=== PATIENT | female | born 1955 | race Caucasian/White ===

== ENCOUNTER → 2020-11-26 | Outpatient (CLI) | payer OTHER ==
[~2020-11-26] VITALS: Ht 160 cm; Wt 76.2 kg
[~2020-11-26] MED LIST: ASA81BEC PO; CLIMARA1 EAC3 TRANSDERM; OMEPRAZOLE40 MG PO; RYTHMOL SR425 MG PO
[2020-11-26 07:38] VITALS: BP 133/67
[2020-11-26 08:09] LABS: ABSOLUTE NEUTROPHILS 1.8 thou/uL (1.4-8.2); BASOPHILS 1.2 % (0.0-2.0); EOSINOPHILS 6.3 % (0.0-3.0); HEMATOCRIT 45.2 % (37.0-47.0); HEMOGLOBIN 14.9 gm/dL (12.0-15.0); LYMPHOCYTES 25.3 % (24.0-44.0); MCH 29.7 pg (26.0-34.0); MCHC 32.9 g/dL (28.0-37.0); MCV 90.3 fL (80.0-100.0); MONOCYTES 18.8 % (1.0-8.0); PLATELET COUNT 210 thou/uL (150-400); POLYS 48.4 % (36.0-66.0); RBC 5.01 mil/uL (4.20-5.00); RDW 13.6 % (10.5-14.5); WBC 3.8 thou/uL (4.0-11.0)
[2020-11-26 08:10] LABS: APTT 27.8 Seconds (24.5-32.8); INR 0.93; PROTIME 10.2 Seconds (10.5-12.1)
[2020-11-26 08:36] LABS: CALCIUM 9.4 mg/dL (8.5-10.1); CREATININE 1.2 mg/dL (0.6-1.0); POTASSIUM 3.9 mmol/L (3.5-5.1)
[2020-11-26 08:41] LABS: ALBUMIN 4.1 g/dL (3.4-5.0); TOTAL BILIRUBIN 0.2 mg/dL (0.2-1.0); TOTAL PROTEIN 7.7 g/dL (6.4-8.2)
--- NOTE | 2020-11-26 10:58 | NUR ---
RETURNED TO CV HOLDING FROM PACU. REPORT AT BEDSIDE. RT AND LT GROIN DRESSINGS C/D/I, SOFT. PT AWAKE AND ALERT. VSS.
--- NOTE | 2020-11-29 08:33 | P ---
[facility] [place] [address] PROCEDURE REPORT Name: ERICKA RANKIN Room #: REG AXEL RamosBrianne#: [id number] Admission: 11/26/20 Attend Phys: Andre Mohan MD Discharge: Date of : 59 Report #: [id number] THIS REPORT FOR: cc: FAM - Family physician unknown NO FAMILY PHYSICIAN or PCP Andre Mohan MD ~ DATE OF SERVICE: 11/26/2020 SVT ABLATION PREOPERATIVE DIAGNOSIS: Supraventricular tachycardia. 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 HISTORY: The patient is a 65-year-old female with a longstanding history of SVT, has been on propafenone therapy and is having breakthrough. She is here for EP study and possible ablation. PROCEDURES PERFORMED: 1. SVT ablation, CPT code 61191. 2. EP with left atrial pacing recording, CPT code 81757. 3. Program stimulation pacing after IV drug infusion, CPT code 87272. 4. 3D mapping, CPT code 10998. ANESTHESIA: The patient underwent MAC anesthesia with no anesthesia-related complications. DESCRIPTION OF PROCEDURE: The patient had undergone informed consent. She was then brought to the EP laboratory in a fasting and a sedated state. She was prepped and draped in a standard fashion. I then obtained access to the right femoral vein x 3 and the left femoral vein x 1. I then placed sheaths up using the modified Seldinger technique. Under fluoroscopy, 3 quadripolar catheters were placed at the HRA, His and RV positions and a decapolar catheter was placed into the coronary sinus for left atrial pacing and recording. A basic EP study was performed. At baseline, she was in sinus rhythm, sinus cycle length of 900 milliseconds, GA interval 166 milliseconds, QRS duration 97 milliseconds, QT interval 435 milliseconds, AH interval 85 milliseconds, HV interval 36 milliseconds. With catheter positioning, she did develop a right bundle branch block. Next, a basic EP study was performed and AV block was noted at 440 milliseconds and the fast pathway ERP was noted at 430 milliseconds at a 500-millisecond basic drive cycle length. Atrial ERP was noted at 340 milliseconds at a 500-millisecond basic drive cycle length. Next, a ventricular pacing was performed and VA block was noted at [address] [facility] [address] [place] [address] PROCEDURE REPORT Name: ERICKA RANKIN Room #: REG [facility]#: [id number] Admission: 11/26/20 Attend Phys: Andre Mohan MD Discharge: Date of : 59 Report #: [id number] milliseconds. Single ventricular extrastimuli were delivered and there was evidence of both midline and decremental VA conduction. Isoproterenol infusion was initiated at 2 mcg per minute. Atrial burst pacing was performed. Atrial ERP was noted at 270 milliseconds at a 450-millisecond basic drive cycle length. With atrial burst pacing, the patient went into SVT, septal VA x 60 and a tachycardia cycle length of 310 milliseconds. I was able to demonstrate an entrainment with a VAHV response multiple times. In fact, when she was in SVT, it was quite hard to terminate it, I would have to pace down to 250 milliseconds from the feed to terminate it. I was able to re-induce it again as we turned off isoproterenol and waited for this to wash out. Therefore, a diagnosis of typical AV kalli reentrant tachycardia was made. 3D MAPPING AND ABLATION: Next, an SR0 and a 4 mm ablation catheter were placed into the right atrium and a 3D geometry of the right atrium was created with specific emphasis of the His bundle region and the slow pathway region. Next, ablation was performed at 50 glover and 55 degrees. The first 5 ablation lesions resulted in no junctionals. I then went slightly higher and pressed against the septum slightly harder. My last 3 dobbs had great junctionals, 2 of the lesions had approximately 50 seconds of junctionals and the last lesion had 30 seconds of junctionals. There was never any compromise to AV kalli conduction. As such, a repeat EP study was performed. Post-ablation EP study was performed on isoproterenol. AV block was noted at 270 milliseconds. Atrial ERP was noted at 210 milliseconds at a 450-millisecond basic drive cycle length. Ventricular pacing was performed and VA block was noted at 290 milliseconds. Aggressive atrial and ventricular pacing was performed and I could no longer induce SVT, nor did I have a jump nor were there any echoes. The isoproterenol was discontinued. I continued performing atrial and ventricular pacing and we could not induce any SVT. Off isoproterenol, AV block was noted at 410 milliseconds. The patient was in sinus rhythm with a sinus cycle length of 655 milliseconds, GA interval 178 milliseconds, QRS duration 125 milliseconds with a right bundle branch block and a QT interval of 414 milliseconds. As such, catheters and sheaths were pulled. Hemostasis was obtained. The patient awoke neurologically and hemodynamically intact. No complications and no significant bleeding. CONCLUSIONS: 1. Successful ablation of typical AV kalli reentrant tachycardia. 2. Normal SA kalli function. 3. Normal AV kalli function. [facility] [address] [place] [address] PROCEDURE REPORT Name: ERICKA RANKIN Room #: SHAYNA Nagel#: [id number] Admission: 11/26/20 Attend Phys: Andre Mohan MD Discharge: Date of : 59 Report #: [id number] 4. Normal His-Purkinje function. 5. No other inducible arrhythmias on or off isoproterenol. <ELECTRONICALLY SIGNED> By: Andre Mohan MD 11/29/20 0833 [id number] Andre Mohan MD /nt
== END | disposition home or self-care (01) ==
LOC: CATH 06:26
PROVIDERS: ATTEND Internal Medicine Cardiovascular Disease
DX: I47.1 Supraventricular tachycardia (principal); K21.9 Gastro-esophageal reflux disease without esophagitis; Z20.822 Contact with and (suspected) exposure to COVID-19; Z98.890 Other specified postprocedural states; Z79.899 Other long term (current) drug therapy
CPT/HCPCS: 62110; 62900; 70005